=== PATIENT | male | born 1980 | race Caucasian/White ===

== ENCOUNTER 2016-11-01 20:54 | Emergency (ER) | payer OTHER ==
[~2016-11-01] VITALS: Ht 170.2 cm; Wt 83.9 kg
[2016-11-02] MEDS ORDERED: IBUPROFEN 600 MG TAB PO ONE (04:45)
[2016-11-02] MEDS ORDERED: CYCLOBENZAPRINE HCL 10 MG TAB PO ONE (04:45)
[2016-11-02 05:05] VITALS: BP 150/95
== END 2016-11-02 05:12 | disposition home or self-care (01) ==
LOC: ER 20:56
DX: S13.9XXA Sprain of joints and ligaments of unspecified parts of neck, initial encounter (principal); S20.219A Contusion of unspecified front wall of thorax, initial encounter; S80.11XA Contusion of right lower leg, initial encounter; V49.49XA Driver injured in collision with other motor vehicles in traffic accident, initial encounter; Y93.89 Activity, other specified; Y99.8 Other external cause status; Y92.488 Other paved roadways as the place of occurrence of the external cause
CPT/HCPCS: 71020; 72125